=== PATIENT | female | born 1965 | race Caucasian/White ===

== ENCOUNTER → 2016-08-29 | Outpatient (CLI) | payer MEDICAID ==
[~2016-08-29] MED LIST: ADIPEX-P37.5 M2 PO; ALBUTEROL2 PUFFS/17 IN; BACTRIM DS 8001 TA1 PO; CICLODAN TP; DOXYCYCLINE HY100 M3 PO; ESTRACE2 MG PO; FLECTOR1 EACH TD; FLEXERIL10 MG PO; FLONASE 50 MCG16 GM; FLUID PILL; FUROSEMIDE 20MG20 MG PO; GABAPENTIN300 MG PO; LAMISIL250 MG PO; LEVOTHYROXINE0.1 MG PO; LISINOPRIL5 MG PO; MEDROL 4MG. DOSE4 MG PO; NEURONTIN100 MG PO; PERCOCET 5/3251 EACH PO; PREDNISONE 10MG10 MG PO; SUMATRIPTAN SUC25 MG PO; TESSALON PERLE100 MG PO; TOPIRAMATE 25MG25 MG PO; TRAMADOL50 M1 PO; WELLBUTRIN XL300 MG PO; XALATAN 0.005%2.5 M1 OP
--- NOTE | 2016-08-31 08:52 | RADIOLOGY REPORT PS360 ---
MRI-L-SPINE W/O, MRI-3D RENDERING/MYELOGRAM HISTORY: Low back pain with bilateral leg pain and numbness LUMBAR PAIN ORDERING PHYSICIAN: Kody Sanabria MD PATIENT AGE: 51 years COMPARISON: 10/12/2015 TECHNIQUE: Standard multiplanar multiecho sequences are performed without contrast. 3-D MIP and myelographic images are also rendered and reviewed FINDINGS: Normal alignment. The spinal cord ends at the T12-L1 level. Mild degenerative disc disease T12-L1. L1-L2, L2-L3, and L3-L4 have an unremarkable appearance. L4-L5: Degenerative disc disease with concentric bulging disc with facet and ligamentum flavum hypertrophy with bilateral lateral recess narrowing and mild bilateral foraminal narrowing along with a tiny left paracentral disc protrusion with canal stenosis as previously noted. There is mild impingement upon both L5 nerve roots slightly greater on the left not significantly changed L5-S1: Mild facet hypertrophy. No extruded herniated disc or other significant anomalies. IMPRESSION: 1. Overall no significant change from 10/12/2015. 2. Degenerative disc disease L4-L5 with concentric bulging disc with facet and ligamentum flavum hypertrophy with bilateral lateral recess narrowing and mild bilateral foraminal narrowing along with a tiny left paracentral disc protrusion with canal stenosis as previously noted.
== END ==
LOC: RAD 13:59
DX: M54.5 Low back pain (principal)

== ENCOUNTER → 2017-02-23 | Outpatient (CLI) | payer MEDICAID ==
[~2017-02-23] MED LIST changes: +AMITIZA24 MCG PO; +HEARTBURN RELIE75 MG PO; +TOPAMAX 25 MG T25 MG PO
--- NOTE | 2017-02-23 15:15 | RADIOLOGY REPORT PS360 ---
KUB (SINGLE VIEW) HISTORY: BILIARY STENT PLACEMENT, ABD PAIN ORDERING PHYSICIAN: Harris Mahajan MD PATIENT AGE: 51 years COMPARISON: None FINDINGS: Bowel gas pattern is nonspecific. No evidence of obstruction. A radiopaque biliary stent is NOT identified. Please correlate the type of stent that was reportedly placed. No acute bony anomalies. Vertical clips are present in the pelvis. IMPRESSION: Unremarkable KUB. A biliary stent is not identified.
== END ==
LOC: RAD 13:49
DX: R10.9 Unspecified abdominal pain (principal); Z96.89 Presence of other specified functional implants

== ENCOUNTER → 2017-06-16 | Day surgery (SDC) | payer MEDICAID ==
[~2017-06-16] VITALS: Ht 180.3 cm; Wt 154.2 kg
[2017-06-16 12:48] VITALS: BP 149/84
[2017-06-16 12:55] VITALS: BP 149/84; BP 155/74
--- NOTE | 2017-06-16 13:20 | Procedure Note ---
Procedure detail Date of procedure: 06/16/17 Anesthesiologist: Anthony Bernstein Complications: None Pre-procedure diagnosis: Degenerative disease lumbar spine multiple levels. Lumbar radiculopathy symptoms. Post-procedure diagnosis: Same. Indications for procedure: Very pleasant 52-year-old obese white female that we've been treating for low back pain as well as bilateral hip and leg radiculopathy symptoms for quite some time. She presents to our procedural clinic today for spinal cord stimulator lead pull. Her trials a success. Patient reports pain was decreased by 75-90 percent. She reports being able to stand and do dishes without pain. We will send the patient for permanent implant. Procedure detail: Leads were pulled without incident. Site was cleansed using chlorhexidine. Dressing was applied. No redness or swelling the area. No sign of infection. Plan and disposition: Simón the patient Dr. Bonner for permanent spinal cord stimulator implant. at [id number]
[2017-06-16 13:35] VITALS: BP 155/74
== END ==
LOC: PM 12:38
DX: M51.16 Intervertebral disc disorders with radiculopathy, lumbar region (principal)